=== PATIENT | female | born 1950 | race Caucasian/White ===

== ENCOUNTER 2022-10-12 12:21 | Emergency (ER) | payer OTHER ==
[~2022-10-12] VITALS: Ht 157.5 cm; Wt 83.5 kg
--- NOTE | 2022-10-12 12:25 | NUR ---
RECEIVED PT 89 yrs male came by son for parcenteses on ED AWAKE AND ALERT
--- NOTE | 2022-10-12 12:45 | NUR ---
BLOOD DROW BY LAB TACH
--- NOTE | 2022-10-12 12:50 | NUR ---
TO CT SCAN
[2022-10-12 13:05] LABS: BASOPHILS # (AUTO) 0.1 K/uL (0.0-0.2); BASOPHILS % (AUTO) 0.8 % (0.0-2.0); EOSINOPHILS % (AUTO) 1.9 % (0.0-6.0); HEMATOCRIT 30 % (33-45); HEMOGLOBIN 10.1 g/dL (11.5-14.8); LYMPHOCYTES # (AUTO) 0.7 K/uL (0.8-4.8); LYMPHOCYTES % (AUTO) 10.9 % (20.0-44.0); MEAN CORPUSCULAR HGB CONC 34 g/dl (31.0-36.0); MEAN CORPUSCULAR VOLUME 95 fL (82-100); MONOCYTES # (AUTO) 0.6 K/uL (0.1-1.30); MONOCYTES % (AUTO) 9.6 % (2.0-12.0); NEUTROPHILS # (AUTO) 5.1 K/uL (1.8-8.9); NEUTROPHILS % (AUTO) 76.8 % (43.0-81.0); PLATELET COUNT (AUTO) 241 K/uL (150-450); RED BLOOD CELL COUNT(AUTO) 3.13 MIL/uL (4.0-5.2); WHITE BLOOD COUNT (AUTO) 6.6 K/uL (4.3-11.0)
[2022-10-12 13:37] LABS: ALBUMIN 1.9 g/dL (3.4-5.0); BILIRUBIN,DIRECT 0.3 mg/dL (0.0-0.2); BILIRUBIN,TOTAL 0.6 mg/dL (0.2-1.0); CREATININE 1.8 mg/dL (0.6-1.3); POTASSIUM 5.2 mmol/L (3.5-5.1); TOTAL PROTEIN, SERUM 6.4 g/dL (6.4-8.2)
--- NOTE | 2022-10-12 13:37 | NUR ---
SON AT BED SIDE (BAYLEE GUALLPA
--- NOTE | 2022-10-12 14:00 | NUR ---
TO CT SCAN
--- NOTE | 2022-10-12 14:30 | NUR ---
RECETING AT THIS TIME
--- NOTE | 2022-10-12 15:10 | NUR ---
NO PAIN NOTED
--- NOTE | 2022-10-12 15:40 | NUR ---
TY weller from [facility] CALLED BACK AWARE PATIENT and son requsted to sign AMA refused to wait for proceses of trancefer and ambulanc DR. BURGESS AWARE
--- NOTE | 2022-10-12 16:00 | NUR ---
DINESE ABDMINALE PAIN
--- NOTE | 2022-10-12 16:20 | NUR ---
AWARE PT REQUSED TO SIGN AMA
--- NOTE | 2022-10-12 16:32 | NUR ---
Patient does not wish to proceed with medical care recommended by ( ). Patient given information related to possible complications, up to and including , which could occur as a result of leaving the hospital at this time. Patient verbalizes understanding of risks involved due to leaving against medical advice. Patient has signed AMA form.
--- NOTE | 2022-10-12 16:35 | NUR ---
Shirin le in [facility] - 10/12/22 at 1650 by RUDY Patient discharged to home in stable condition. Written and verbal after care instructions given. Patient verbalizes understanding of instruction.
[2022-10-12 16:46] VITALS: BP 110/63
== END 2022-10-12 17:01 | disposition left against medical advice (07) ==
LOC: ER 12:25
DX: K70.31 Alcoholic cirrhosis of liver with ascites (principal); N28.9 Disorder of kidney and ureter, unspecified; D64.9 Anemia, unspecified; I10 Essential (primary) hypertension; E11.65 Type 2 diabetes mellitus with hyperglycemia; R74.02 Elevation of levels of lactic acid dehydrogenase [LDH]; Z20.822 Contact with and (suspected) exposure to COVID-19
CPT/HCPCS: 99285; 74176; 87426; 85025; 80048; 83690; 80076; 36415; C9803